=== PATIENT | female | born 1970 | race Caucasian/White ===

== ENCOUNTER → 2016-09-24 | Outpatient (CLI) | payer BC ==
[~2016-09-24] MED LIST: CIPRO PO; FLOMAX0.4 M1 PO; INDOCIN SR75 MG; LORTAB 5/500 TA1 TA1 PO; MUSCLE RELAXER; NO MEDICATIONS; PERCOCET 5-3251 TAB PO; PERCOCET 51 UDTAB 5/ PO; PHENERGAN25 MG PO
--- NOTE | ~2016-09-24 | CT113 ---
[facility] A Service of [facility] RADIOLOGY TEXT RESULTS PATIENT: DESHAUN RAMIREZ LOCATION: [facility] : 72 UNIT #: [id number] AGE: [address]: Luba Gonzalez MD SEX: F ORDER DR: [id number] [facility]. [place], [place] [address] [id number] O MR#: [id number] Acc #: [id number] NAME: DESHAUN RAMIREZ : 1970 SEX: F STUDY DATE/TIME: 09/24/2016 10:14 UNIT: [facility] ROOM: STUDY DESCRIPTION: CT Sinuses Wo Contrast Attending Physician: Luba Gonzalez M.D. Referring Physician: Luba Gonzalez M.D. Ordering Physician: Luba Gonzalez M.D. Primary Care Physician: Luba Gonzalez M.D. MEDICAL IMAGING REPORT This report is preliminary unless electronic signature is present EXAM Sinus CT no contrast, 09/24/2016 COMPARISON None HISTORY Acute sinusitis with facial swelling and nasal congestion for a few months. Swelling is facial/maxillary region. TECHNIQUE This CT exam was performed with one or more of the following radiation dose reduction techniques: automatic exposure control, adjustment of mA and/or kV according to patient size, and iterative reconstruction. FINDINGS The frontal sinuses, ethmoid air cells, sphenoid chambers and maxillary sinuses are normally pneumatized and aerated. The maxillary infundibula are patent though there are prominent Juan cells bilaterally. There are bilateral middle turbinate paras bullosa. The anterior septum bows slightly rightward and the mid septum bows very slightly leftward. There are no fluid levels or areas of bony thickening or erosion. The sphenoid chamber shows marked right chamber dominance. The facial including orbital and periorbital soft tissues are unremarkable. IMPRESSION No CT evidence of currently active sinus inflammatory disease. Dictated by... Rai Awad M.D. [facility] A Service [facility] RADIOLOGY TEXT RESULTS PATIENT: DESHAUN RAMIREZ LOCATION: [facility] : 72 UNIT #: [id number] AGE: [address]: Luba Gonzalez MD SEX: F ORDER DR: THIS IS AN ELECTRONICALLY VERIFIED REPORT Rai Awad M.D. at 09/27/2016 2:33 PM Kacie TD: 09/27/2016 11:25 JOB #: [id number] MEDICAL IMAGING REPORT Page 1 of 1 COPY
--- NOTE | ~2016-09-24 | US6 ---
[facility] A Service of [facility] RADIOLOGY TEXT RESULTS PATIENT: DESHAUN RAMIREZ LOCATION: [facility] : 72 UNIT #: [id number] AGE: [address]: Luba Gonzalez MD SEX: F ORDER DR: [id number] [facility] [address] [facility]. [place], [place] [address] [id number] O MR#: [id number] Acc #: [id number] NAME: DESHAUN RAMIREZ : 1970 SEX: F STUDY DATE/TIME: 09/24/2016 9:56 UNIT: [facility] ROOM: STUDY DESCRIPTION: US Abdominal Limited Attending Physician: Luba oGnzalez M.D. Referring Physician: Luba Gonzalez M.D. Ordering Physician: Luba Gonzalez M.D. Primary Care Physician: Luba Gonzalez M.D. MEDICAL IMAGING REPORT This report is preliminary unless electronic signature is present EXAM Ultrasound abdomen, limited. DATE OF EXAM 09/24/2016 HISTORY Elevated LFTs. Abnormal labs. Hyperlipidemia. Markedly elevated liver enzymes. TECHNIQUE Real-time ultrasonography of the right upper quadrant performed. COMPARISON No prior ultrasound for comparison. There is a CT abdomen and pelvis dated 04/21/2012. FINDINGS The visualized portions of pancreas are unremarkable. Some portions of pancreatic body and tail are obscured by bowel gas artifact. The liver is slightly heterogeneous in echotexture. There is no focal parenchymal abnormalities seen. Hepatic contour is normal. The liver is normal in size measuring approximately 13.3 cm in craniocaudal extent. Portal vein is patent with normal direction of flow. The right kidney measures 8.7 cm in greatest length. There is no hydronephrosis or nephrolithiasis. No cystic or solid mass lesion and no perinephric fluid collection. The gallbladder is low in volume. No gallstones. No pericholecystic fluid or gallbladder wall thickening. The common duct is within normal limits at 4 to 5 mm diameter. Gallbladder wall measures about 2.8 mm in thickness. There may be a small amount of gallbladder sludge present. No shadowing calculi. IMPRESSION [facility] A Service of [facility] RADIOLOGY TEXT RESULTS PATIENT: DESHAUN RAMIREZ LOCATION: [facility] #: [id number] : 72 UNIT #: [id number] AGE: [address]: Luba Gonzalez MD SEX: F ORDER DR: 1. The liver is normal in contour and size. It shows mild heterogeneity of echotexture, but no suspicious focal parenchymal abnormality. 2. No biliary ductal dilatation. 3. There may be a small amount of gallbladder sludge present. There is no gallbladder dilatation, wall thickening or pericholecystic fluid. No discrete calculi are seen. 4. Right kidney normal. 5. Visualized pancreas unremarkable. The pancreatic tail obscured by bowel gas artifact. If it would assist in management, pancreas could be further assessed with CT. Dictated by... Sam Smith M.D. THIS IS AN ELECTRONICALLY VERIFIED REPORT Sam Smith M.D. at 09/24/2016 8:00 PM LOIS/homar TD: 09/24/2016 17:17 JOB #: [id number] MEDICAL IMAGING REPORT Page 1 of 1 COPY
== END | disposition home or self-care (01) ==
LOC: CGUS 09:19
DX: J01.90 Acute sinusitis, unspecified (principal); R74.8 Abnormal levels of other serum enzymes
CPT/HCPCS: 70486; 76705

== ENCOUNTER → 2017-02-11 | Outpatient (CLI) | payer BC ==
--- NOTE | ~2017-02-11 | MY29 ---
[facility] A Service of [facility] RADIOLOGY TEXT RESULTS PATIENT: DESHAUN RAMIREZ LOCATION: [facility] : 72 UNIT #: [id number] AGE: [address]: Luba Gonzalez MD SEX: F ORDER DR: [id number] [facility] [address] [facility] [address]. [place], [place] [address] [id number] O MR#: [id number] Acc #: [id number] NAME: DESHAUN RAMIREZ : 1970 SEX: F STUDY DATE/TIME: 02/11/2017 10:11 UNIT: [facility] ROOM: STUDY DESCRIPTION: MY ANUJ SCREENING W/ CAD BILAT Attending Physician: Luba Gonzalez M.D. Referring Physician: Luba Gonzalez M.D. Ordering Physician: Luba Gonzalez M.D. Primary Care Physician: Luba Gonzalez M.D. MEDICAL IMAGING REPORT This report is preliminary unless electronic signature is present EXAM Bilateral digital screening mammogram with CAD device, 02/11/2017. HISTORY Routine screening. FINDINGS Bilateral digital screening mammogram was performed in craniocaudal and mediolateral oblique projections demonstrating moderate fibroglandular tissue. Compared with 01/23/2016, there has been interval development of a 5 mm nodular asymmetry with peripheral irregularity in the upper half of the left breast seen only in the mediolateral-oblique projection. Recommend spot compression for further evaluation. No suspicious cluster of microcalcifications was seen. The films have been reviewed by an FDA-approved CAD device. IMPRESSION Development of a 5 mm nodular asymmetry with peripheral irregularity in the upper half of the left breast seen only in the mediolateral-oblique projection compared with 01/23/2016. Recommend spot compression for further evaluation. Patients over the age of 40 are entered into a reminder system with target due date for the next mammogram. A result letter will also be sent to the patient. BIRADS: 0 Incomplete; need additional imaging evaluation and/or prior mammograms for comparison. Dictated by... Telly Atwood M.D. [facility] A Service of [facility] RADIOLOGY TEXT RESULTS PATIENT: DESHAUN RAMIREZ LOCATION: [facility] : 72 UNIT #: [id number] AGE: [address]: Luba Gonzalez MD SEX: F ORDER DR: THIS IS AN ELECTRONICALLY VERIFIED REPORT Telly Atwood M.D. at 02/11/2017 4:54 PM AMY/katie TD: 02/11/2017 14:58 JOB #: [id number] MEDICAL IMAGING REPORT Page 1 of 1 COPY
== END | disposition home or self-care (01) ==
LOC: CWCC 09:48
DX: Z12.31 Encounter for screening mammogram for malignant neoplasm of breast (principal); N63 Unspecified lump in breast
CPT/HCPCS: G0202

== ENCOUNTER → 2017-02-25 | Outpatient (CLI) | payer BC ==
--- NOTE | ~2017-02-25 | MY24 ---
[facility] A Service of [place] [facility] RADIOLOGY TEXT RESULTS PATIENT: DESHAUN RAMIREZ LOCATION: [facility] : 72 UNIT #: [id number] AGE: [address]: Luba Gonzalez MD SEX: F ORDER DR: [id number] [place], [place] [address] [id number] O MR#: [id number] Acc #: [id number] NAME: DESHAUN RAMIREZ : 1970 SEX: F STUDY DATE/TIME: 02/25/2017 13:27 UNIT: [facility] ROOM: STUDY DESCRIPTION: LUCITA MADRID W/ CAD UNI LT Attending Physician: Luba Gonzalez M.D. Referring Physician: Luba Gonzalez M.D. Ordering Physician: Luba Gonzalez M.D. Primary Care Physician: Luba Gonzalez M.D. MEDICAL IMAGING REPORT This report is preliminary unless electronic signature is present EXAM Left breast digital diagnostic mammogram with CAD DATE 02/25/2017 HISTORY Focal asymmetry within the left breast on previous screening mammogram seen on only 1 projection, for which additional diagnostic imaging was recommended. COMPARISON Bilateral digital diagnostic mammogram 01/23/2016. Right breast digital diagnostic mammogram 08/20/2016, bilateral screening mammogram 02/11/2017 FINDINGS True ML view was obtained of the left breast utilizing digital technique and reviewed with an FDA-approved CAD device. Scattered fibroglandular densities are present in the left breast. The focal asymmetry seen in the superior hemisphere left breast MLO view on the previous screening mammogram is inconspicuous on the true ML view. Additionally, spot compression was performed of the superior hemisphere of the left breast in the MLO plane, and the focal asymmetry dissipates into normal fibroglandular components. No underlying suspicious nodule is identified. No microcalcifications. No architectural distortion. IMPRESSION 1. Left breast BIRADS category 2. Benign findings. Patient is advised to return for routine screening mammogram cycle, due in February 2018. Findings and recommendations were discussed with the patient today in the radiology department. [facility] A Service of [place] [facility] RADIOLOGY TEXT RESULTS PATIENT: DESHAUN RAMIREZ LOCATION: [facility] : 72 UNIT #: [id number] AGE: [address]: Luba Gonzalez MD SEX: F ORDER DR: Patients over the age of 40 are entered into a reminder system with target due date for the next mammogram. A result letter will also be sent to the patient. BIRADS: 2, benign findings. Dictated by... Gloria Lewis M.D. THIS IS AN ELECTRONICALLY VERIFIED REPORT Gloria Lewis M.D. at 03/02/2017 3:26 PM NILES/riri TD: 02/26/2017 05:16 JOB #: [id number] MEDICAL IMAGING REPORT Page 1 of 1 COPY
== END | disposition home or self-care (01) ==
LOC: CMAM 12:41
DX: R92.8 Other abnormal and inconclusive findings on diagnostic imaging of breast (principal)
CPT/HCPCS: G0206